=== PATIENT | male | born 1955 | race Caucasian/White ===

== ENCOUNTER 2018-12-29 16:12 | Emergency (ER) | payer MEDICARE ==
[~2018-12-29] VITALS: Ht 180.3 cm; Wt 81.7 kg
[~2018-12-29 16:12] MED LIST: ACIDOPHILUS1 EAC5 PO; ALBUTEROL2.5 MG/3 M INH; ALEVE220 MG PO; AMOX TR-K CLV1 EAC1 PO; BIOTIN5 M1 PO; CEFTRIAXONE2 G1 IV; CLARITIN10 MG PO; CLINDAMYCIN HC300 MG PO; DIAZEPAM5 MG PO; DOK250 MG PO; FLAGYL500 MG PO; FLAX OIL1000 MG PO; GALZIN50 MG PO; GLUCOSA-CHOND-1 EACH PO; HYDROMORPHONE HC4 MG PO; MUCINEX DM ER1 EACH PO; NIACIN50 MG PO; NORCO 5-325 TA1 EACH PO; OXYCODONE HCL5 M1 PO; OXYCONTIN10 MG PO; OXYCONTIN40 MG PO; POTASSIUM GLUCO99 MG PO; SAW PALMETTO80 MG PO; TESTOSTERO200 MG/1 M IM; TRAZODONE HCL100 MG PO; TRAZODONE HCL150 MG PO; VITAMIN D5000 UNIT PO; XARELTO10 MG PO
[2018-12-29] MEDS ORDERED: ZITHROMAX250 MG PO (17:23)
== END 2018-12-29 17:30 | disposition home or self-care (01) ==
LOC: ED 16:12
DX: J40 Bronchitis, not specified as acute or chronic (principal)
CPT/HCPCS: 71046; 99283-25

== ENCOUNTER 2019-02-13 18:51 | Emergency (ER) | payer MEDICARE ==
[~2019-02-13] VITALS: Ht 180.3 cm; Wt 95.2 kg
[~2019-02-13 18:51] MED LIST changes: +ZITHROMAX250 MG PO
[2019-02-13] MEDS ORDERED: KEPPRA500 MG PO (21:28)
--- NOTE | 2019-02-13 22:42 | EKG ---
[facility] [address] [place] [address] Signed Normal sinus rhythm Incomplete right bundle branch block Left anterior fascicular block Abnormal ECG No previous ECGs available Confirmed by FOREST CONRAD MD ([id number]) on 02/13/2019 10:42:41 PM Electronically Signed By: FOREST CONRAD MD 02/13/19 2242 PATIENT NAME: VIOLETTE ROCHA Electrocardiogram DATE OF : 51 PHYSICIAN: FOREST CONRAD MD REPORT #: [id number] REPORT IS CONFIDENTIAL AND NOT TO BE RELEASED WITHOUT AUTHORIZATION
== END 2019-02-13 22:04 | disposition home or self-care (01) ==
LOC: ED 18:51
DX: G40.409 Other generalized epilepsy and epileptic syndromes, not intractable, without status epilepticus (principal)
CPT/HCPCS: 70450; 80053; 81001; 85025; 93005; 93010; 96374; 99285-25; G0480; J1953; J7060